=== PATIENT | female | born 1945 | race Caucasian/White ===

== ENCOUNTER → 2019-04-10 07:38 | Outpatient (CLI) | payer MEDICARE, SELFPAY ==
[2018-10-29 11:31] VITALS: BMI 32.5
--- NOTE | 2019-04-10 07:48 | VDLE_ITS ---
Reason For Study: Varicose Veins RIGHT LEFT CFV is compressible, spontaneous, phasic, CFV is compressible, spontaneous, phasic, competent and demonstrates normal competent, and demonstrates normal augmentation. augmentation. FV is compressible, spontaneous, phasic, FV is compressible, spontaneous, phasic, competent and demonstrates normal competent and demonstrates normal augmentation. augmentation. POP V is compressible, spontaneous, phasic, POP V is compressible, spontaneous, phasic, competent and demonstrates normal competent and demonstrates normal augmentation. augmentation. T/P Trunk is compressible. T/P Trunk is compressible. PTV is compressible. PTV is compressible. RT PerV is compressible. LT PerV is compressible. SFJ is competent. SFJ is competent. GSV above knee is competent. GSV is INCOMPETENT throughout for greater GSV below knee is INCOMPETENT for greater than 0.5 seconds and measures 0.29 x0.28 cm. than 0.5 seconds and measures 0.32 x 0.32 cm. GSV mid calf and below is very small. SSV is compressible but to small to evaluate. ASV from groin is INCOMPETENT for greater Procedure than 0.5 seconds and measures 0.30 x 0.34 cm. Exam performed in department. SSV is compressible but to small to evaluate. Interpretation Summary 1. Bilateral no DVT. 2. No deep reflux. 3. Right BK GSV reflux. 3. Left GSV 3mm and reflux throughout and ASV 3.4mm and reflux. Ordering Physician: Jerad Monte Referring Physician: MD Jerad Monte Performed By: Christina Chang RVT
== END ==
PROVIDERS: Family Provider Nurse Practitioner Primary Care; PCP Nurse Practitioner Primary Care; Referring Provider Surgery Vascular Surgery; Visit Provider Surgery Vascular Surgery
DX: I83.893 Varicose veins of bilateral lower extremities with other complications (principal); M79.89 Other specified soft tissue disorders; M79.609 Pain in unspecified limb
CPT/HCPCS: 93970

== ENCOUNTER → 2021-09-14 11:03 | Outpatient (CLI) | payer MEDICARE, SELFPAY ==
[2021-09-14 11:15] LABS: Absolute Neutrophil Count 6.2 X10^3/uL (2.0-7.7); Basophil# 0.02 X10^3/uL; Basophil% 0.2 % (0-1); Eosinophil# 0.01 X10^3/uL; Eosinophils% 0.1 % (0-5); Hematocrit 36.6 % (37-47); Hemoglobin 11.7 g/dL (12.0-15.0); Lymphocyte % 15.6 % (19-41); Mean Corpuscular Hgb 28.6 pg (27.0-32.0); Mean Corpuscular Volume 89.5 fL (81-99); Mean Platelet Vol. 11.9 fl (6.2-12.0); Monocyte# 0.77 X10^3/uL; Monocyte% 9.2 % (0-10); NRBC Flagged by Analyzer 0 % (0-5); Neutrophil % 74.4 % (47-70); Platelet Count 153 K/mm3 (150-450); RBC Distribution Width CV 14.4 % (11.6-14.6); RBC Distribution Width SD 46.8 fl (35.1-43.9); Red Blood Count 4.09 M/mm3 (4.2-5.4); White Blood Count 8.3 K/mm3 (4.4-11.0)
[2021-09-14 11:30] LABS: ALB/GLOB Ratio 0.9 RATIO (0.9-2.4); AST(SGOT) 20 U/L (15-37); Alanine Aminotransfer ALT/SGPT 24 U/L (13-56); Albumin, Serum 3.5 g/dL (3.2-5.0); Alkaline Phosphatase 103 U/L (45-117); Anion Gap 6 (5-15); BUN 15 mg/dL (7-18); BUN/Creat Ratio 18.8 RATIO (10-20); Calcium,Total 9.4 mg/dL (8.5-10.1); Chloride 102 mmol/L (98-107); EST Glomerular Filtration Rate 75 mL/min (>60); Est Glom Filt Rate - Afr Amer 90 mL/min (>60); Globulin 4.1 g/dL (2.2-4.2); Glucose 117 mg/dL (74-106); Potassium 3.6 mmol/L (3.5-5.1); Protein, Total 7.6 g/dL (6.4-8.2); Sodium Level 138 mmol/L (136-145)
[2021-09-14 19:07] LABS: Xtra Tube EP Lab EXTRA TUBE
== END ==
PROVIDERS: PCP Nurse Practitioner Primary Care; Visit Provider Internal Medicine Hematology & Oncology
DX: C50.912 Malignant neoplasm of unspecified site of left female breast (principal); Z17.0 Estrogen receptor positive status [ER+]
CPT/HCPCS: 36415; 80053; 85025

== ENCOUNTER → 2021-09-17 13:32 | Outpatient (CLI) | payer MEDICARE, SELFPAY ==
--- NOTE | 2021-09-17 13:36 | CT_ITS ---
HISTORY: Left breast and keri disease resected, evaluate for any regional disease. TECHNIQUE: Helically acquired images were obtained of the chest following IV contrast. A radiation dose optimization technique was used for this scan. 100 mL Isovue 300 IV/Readicat p.o. # of images incl. paperwork: [id number]. COMPARISON: None. FINDINGS: CENTRAL AIRWAYS: Patent. LUNGS: Clear. PLEURA: No pneumothorax or pleural effusion. HEART AND PERICARDIUM: Heart size within normal limits with pacemaker in place. No significant pericardial effusion. VESSELS: Aorta within normal limits in size and contour. No large central pulmonary embolism although study not performed with pulmonary embolism protocol. MEDIASTINUM AND ADALID: No enlarged lymph nodes. SOFT TISSUES: Left breast implant with irregular scarring extending to the skin surface . Small left axillary lymph nodes without pathologic enlargement. BONES: Degenerative changes of the left shoulder with periarticular ossifications an old fracture of the coronoid process. No suspicious osteoblastic or osteolytic lesion. Diffuse idiopathic skeletal hyperostosis. UPPER ABDOMEN: Refer to CT abdomen regarding liver lesions. CT/Chest WITH Contrast IMPRESSION: Postoperative changes of the left breast without evidence for metastatic disease in the chest. Individualized dose optimization techniques were used for this CT. at 1126 Reported and signed by: Jennifer Lee MD Electronically Signed: Jennifer Lee MD at 11:25 EST Tel , Service support ,
--- NOTE | 2021-09-17 13:36 | CT_ITS ---
STUDY: CT ABDOMEN AND PELVIS WITH AND WITHOUT CONTRAST REASON FOR EXAM: Female, 76 years old. staging for recurrent breast cancer RADIATION DOSAGE (If Supplied By Facility): CTDIvol = ( 19.34 ) mGy, DLP = ( 2552.65 ) mGycm TECHNIQUE: Transaxial images were obtained from the dome of the diaphragm to the symphysis pubis with oral contrast. Oral and amp; IV Readi-CAT and amp; 100mL Isovue-300 was administered. Sagittal and coronal images were reconstructed. Individualized dose optimization techniques were used for this CT. COMPARISON: None. FINDINGS: The visualized lung bases are unremarkable. The visualized portions of the heart are within normal limits. Nonenhancing liver cysts in the left lobe of liver measuring 2.5 cm as well as 1.7 cm. Otherwise, unremarkable liver. Normal gallbladder and extrahepatic biliary system. Normal spleen. There is diffuse atrophy of the pancreas. Normal bilateral adrenal glands. Normal right kidney. Normal left kidney. Normal visualized stomach. Normal small intestine. There are multiple colonic diverticula consistent with diverticulosis. The appendix is visualized and appears normal. There is diffuse atherosclerotic calcification of the abdominal aorta, without a demonstrated aneurysm. There is an IVC filter in place. Normal retroperitoneum. Normal urinary bladder. Normal visualized uterus. Normal abdominal wall. Right hip arthroplasty. Otherwise, degenerative changes of the lumbar spine without metastatic lesions CT/CT Abd/Pelvis W/WO Contrast IMPRESSION: No evidence of metastatic disease in the abdomen or pelvis. Several nonenhancing liver cysts in the left lobe of the liver. IVC filter in place. No concerning lymphadenopathy. Electronically Signed: Bull Muller DO at 0:35 EST Tel , Service support ,
== END ==
PROVIDERS: PCP Nurse Practitioner Primary Care; Referring Provider Student in an Organized Health Care Education/Training Program; Visit Provider Student in an Organized Health Care Education/Training Program
DX: C50.912 Malignant neoplasm of unspecified site of left female breast (principal)
CPT/HCPCS: 71260; 74178; Q9967; A4216

== ENCOUNTER → 2021-09-20 07:56 | Outpatient (CLI) | payer MEDICARE, SELFPAY ==
--- NOTE | 2021-09-20 07:58 | NM_ITS ---
CLINICAL: 76-year-old female with reported history of carcinoma of the breast. WHOLE BODY 99m Tc MDP RADIONUCLIDE BONE SCINTIGRAPHY COMPARISON: CT of the chest, abdomen and pelvis reports 09/17/2021 FINDINGS: Following the intravenous administration of 25.3 mCi of 99m Tc MDP, whole body bone images reveal: 1. Focal increased radiopharmaceutical concentration is defined in the left coracoid process which appears to correlate with trauma fracture defined on CT of the chest dated 09/17/2021. 2. Enhanced tracer uptake is observed in the glenohumeral compartment of the right shoulder, acromioclavicular and sternoclavicular compartments of both shoulders, right knee, patellofemoral compartment of the left knee, the fifth, ninth and 11th thoracic vertebra posteriorly on the right, the left hip, fifth lumbar vertebra posteriorly on the left, right posterior sacrum. 3. The remaining skeletal structures are scintigraphically unremarkable with normal-appearing renal images and urinary bladder activity identified. Prominent tracer concentration is noted in the presumably asymptomatic intertrochanteric aspect of the visualized right hip arthroplasty, medial-lateral femoral components of the left knee prosthesis. There is evidence of hyperostosis frontalis. NM/Bone Scan Whole Body IMPRESSION: 1. The increase in tracer concentration observed in the left coracoid process is most consistent with trauma-fracture. Dedicated plain film radiography may be of benefit for further evaluation. 2. Facilitated uptake identified in the presumed nonpainful, asymptomatic left knee prosthesis to include the the medial-lateral tibial components, intertrochanteric and distal femoral components of the right hip prosthesis is most consistent with normal postsurgical change. Electronically Signed: Dioni Valera DO at 23:05 EST Tel , Service support ,
== END ==
PROVIDERS: PCP Nurse Practitioner Primary Care; Referring Provider Student in an Organized Health Care Education/Training Program; Visit Provider Student in an Organized Health Care Education/Training Program
DX: C50.912 Malignant neoplasm of unspecified site of left female breast (principal)
CPT/HCPCS: 78306; A9503

== ENCOUNTER 2021-12-31 13:12 | Outpatient (CLI) | payer MEDICARE, SELFPAY ==
--- NOTE | 2021-12-31 13:15 | MRI_ITS ---
EXAM: MR RIGHT LOWER EXTREMITY WITHOUT INTRAVENOUS CONTRAST, HIP CLINICAL INDICATION: RIGHT hip pain, unable to ambulate properly Prosthesis MARS protocol TECHNIQUE: Multiplanar and multisequence MR images of the right hip without intravenous contrast. This report was created using [employer] report [employer] technology. COMPARISON: None. FINDINGS: TENDONS: FLEXORS: Unremarkable. Intact. EXTENSORS/HAMSTRING: Unremarkable. Intact. ABDUCTORS: Unremarkable. Intact. ADDUCTORS: Unremarkable. Intact. ROTATORS: Unremarkable. Intact. MUSCLES: Unremarkable. Normal bulk and signal. FLUID: Unremarkable. No joint effusion. No trochanteric bursitis. LABRUM: Unremarkable. No evidence of a tear on this non-arthrogram exam. CARTILAGE: Unremarkable. Articular cartilage intact. BONES/JOINTS: Total right hip arthroplasty. Degenerative findings in the lumbar spine. No femoral neck fracture. No avascular necrosis of the femoral head. No sacral insufficiency fracture. No suspicious bone marrow signal alteration. OTHER SOFT TISSUES: Unremarkable. MRI/Lower Ext Joint Only (Routine) IMPRESSION: No acute findings in the right hip. Electronically Signed: James Noriega MD at 20:29 EDT Reading Location ID and State: [facility] / [place] , Service support ,
[2021-12-31 13:44] VITALS: BP 129/74; PULSE 80; RESP 16; O2SAT 97
[2021-12-31 13:52] VITALS: BP 120/68; PULSE 79; RESP 16; O2SAT 97
[2021-12-31 14:04] VITALS: BP 117/66; PULSE 79; RESP 16; O2SAT 98
[2021-12-31 14:14] VITALS: BP 117/64; PULSE 80; RESP 16; O2SAT 97
[2021-12-31 14:24] VITALS: BP 111/61; PULSE 80; RESP 16; O2SAT 96
[2021-12-31 14:33] VITALS: BP 112/68; PULSE 78; RESP 16; O2SAT 95
== END 2021-12-31 23:59 | disposition home or self-care (01) ==
PROVIDERS: PCP Nurse Practitioner Primary Care; Visit Provider Specialist
DX: M25.551 Pain in right hip (principal); G89.29 Other chronic pain
CPT/HCPCS: 73721

== ENCOUNTER → 2022-03-08 | Outpatient (CLI) | payer MEDICARE, SELFPAY ==
--- NOTE | 2022-03-08 13:00 | MRI_ITS ---
STUDY: MR Spine Lumbar W/O Contrast 03/08/2022 2:20 PM REASON FOR EXAM: Female, 76 years old. Back pain SPINAL STENOSIS hip pain TECHNIQUE: MR Spine Lumbar W/O Contrast Standardized fat and water weighted pulse sequences were obtained. COMPARISON: None FINDINGS: T12-L1: Normal endplates. Normal disc height, hydration and morphology. Normal bilateral facet joints. Normal central canal and bilateral lateral recesses. Normal bilateral intervertebral neural foramina. Normal lumbar lordosis. There is no substantial scoliosis. Normal conus medullaris that terminates at the L1. L1-2: Loss of intervertebral disc height. There is endplate spondylosis of the vertebral body. Normal central canal and intervertebral neuroforamina. There is bilateral facet arthropathy. There is bilateral ligamentum flavum thickening. L2-3: Loss of intervertebral disc height. There is endplate spondylosis of the vertebral body. Normal central canal and intervertebral neuroforamina. There is bilateral facet arthropathy. There are laminectomy changes in the spine. This is consistent for previous surgery. L3-4: Loss of intervertebral disc height. There is endplate spondylosis of the vertebral body. There is bilateral facet arthropathy. Right neural foraminal stenosis. Compression of exiting nerve roots. There are laminectomy changes in the spine. This is consistent for previous surgery. Disc protrusion. Narrowing the lateral recess. Likely compression of the descending L4 nerve roots. L4-5: Loss of intervertebral disc height. There is endplate spondylosis of the vertebral body. There is bilateral facet arthropathy. Bilateral neural foraminal stenosis. Compression of exiting nerve roots. There are laminectomy changes in the spine. This is consistent for previous surgery. Disc protrusion. Narrowing the lateral recess. Likely compression of the descending L5 nerve roots. L5-S1: Loss of intervertebral disc height. There is endplate spondylosis of the vertebral body. There is bilateral facet arthropathy. Bilateral neural foraminal stenosis. Compression of exiting nerve roots. There are laminectomy changes in the spine. This is consistent for previous surgery. Posterior disc bulge. Normal visualized sacral ala. MRI/Spine Lumbar (Routine) IMPRESSION: Multilevel degenerative changes, as described above. L3-4: Right neural foraminal stenosis. Compression of exiting nerve roots. There are laminectomy changes in the spine. This is consistent for previous surgery. Disc protrusion. Narrowing the lateral recess. Likely compression of the descending L4 nerve roots. L4-5: Bilateral neural foraminal stenosis. Compression of exiting nerve roots. There are laminectomy changes in the spine. This is consistent for previous surgery. Disc protrusion. Narrowing the lateral recess. Likely compression of the descending L5 nerve roots. L5-S1: Bilateral neural foraminal stenosis. Compression of exiting nerve roots. There are laminectomy changes in the spine. This is consistent for previous surgery. Posterior disc bulge. Electronically Signed: James Noriega MD at 14:25 EDT Reading Location ID and State: [facility] / [place] , Service support ,
[2022-03-08 13:30] VITALS: BP 105/46; PULSE 100; RESP 16; O2SAT 96
== END | disposition home or self-care (01) ==
PROVIDERS: PCP Nurse Practitioner Primary Care; Visit Provider Orthopaedic Surgery
DX: M48.061 Spinal stenosis, lumbar region without neurogenic claudication (principal); M47.816 Spondylosis without myelopathy or radiculopathy, lumbar region; M96.1 Postlaminectomy syndrome, not elsewhere classified
CPT/HCPCS: 72148

== ENCOUNTER 2022-07-04 10:08 | Day surgery (SDC) | payer MEDICARE, SELFPAY ==
[2022-07-04 10:34] VITALS: BP 120/57; PULSE 59; RESP 16; TEMP 36.3; O2SAT 100; BMI 40.2
[2022-07-04] MEDS: Lactated Ringers 1,000 ML 15 ML IV (10:47)
--- NOTE | 2022-07-04 11:50 | RAD_ITS ---
PROCEDURE: CAUDAL EPIDURAL STEROID INJ INDICATION: CAUDAL EPIDURAL STEROID INJ EXAMINATION/TECHNIQUE: X-RAY - IR Fluoro Guide Injection Spine COMPARISON: 03/08/2022. FLUOROSCOPY TIME: 6.1 seconds FLUOROSCOPY DOSE: 12.17 mGy FINDINGS: A single spot fluoroscopic image was obtained intraoperatively. Lateral view of the sacrum and coccyx was obtained demonstrating demonstrate the needle placement and contrast injection. No radiologist was present for the procedure, please refer to operative report for details. RAD/Fluoro Guided Needle Placement IMPRESSION: Please refer to operative report for details. Electronically Signed: Piotr Flaherty MD at 13:42 EDT ,
[2022-07-04] MEDS: Lidocaine 1% (30 ml sdv) 30 ML Vial INFILT (12:04)
[2022-07-04] MEDS: MethylPREDNISolone Acetate 80 MG/ML Vial (12:05)
[2022-07-04] MEDS: 0.9% Normal Saline (Pres. free 10 ML Vial (12:05)
[2022-07-04 12:09] VITALS: BP 120/57; BP 131/69; PULSE 66; RESP 16; TEMP 36.7; O2SAT 100
[2022-07-04 12:15] VITALS: BP 114/69; BP 120/57; PULSE 63; RESP 16; O2SAT 99
[2022-07-04 12:20] VITALS: BP 120/57; BP 136/58; PULSE 60; RESP 16; O2SAT 100
[2022-07-04 12:25] VITALS: BP 120/57; BP 137/68; PULSE 60; RESP 16; TEMP 36.7; O2SAT 99
[2022-07-04 12:43] VITALS: BP 120/57
--- NOTE | 2022-07-04 17:12 | OP.PCM_ITS ---
Report of Operation Date of Procedure: 07/04/22 Pre-Operative Diagnosis: Lumbosacral radiculopathy, lumbosacral degenerative di sc disease, lumbosacral spinal stenosis Post-Operative Diagnosis: Lumbosacral radiculopathy, lumbosacral degenerative disc disease, lumbosacral spinal stenosis Surgery/Procedure Performed:: Caudal epidural steroid injection under fluoroscopic guidance Type of Anesthesia: MAC Estimated Blood Loss (mL): Minimal Description of Procedure: DESCRIPTION OF PROCEDURE: History and physical of today was reviewed. Risks and benefits of the procedure were explained. The patient understood and agreed to proceed. Informed consent was obtained. IV inserted per routine protocol. The patient was taken to the operating room and placed in the prone position with a pillow positioned underneath the abdomen. The lower back and tailbone area was prepped and draped in a sterile fashion using iodine x3. Under fluoroscopy guidance on a lateral view, the caudal space was identified. The skin and subcutaneous tissue was anesthetized with approximately 3 mL of 1% lidocaine using a 25-gauge regular needle. Under direct visualization with fluoroscopy, using a 22-gauge 3-1/2-inch spinal needle, the needle was advanced via the skin through the sacral hiatus. The tip of the needle was passed through the sacrococcygeal ligament and advanced to approximately S4 area. After negative aspiration of blood or CSF, a total of 3 mL of contrast was injected to confirm correct placement of the needle as well as cephalad spread. The spread was followed to approximately L5 area. After confirmation on AP as well as lateral view and repeated negative aspiration, a total of 15 mL of preservative-free 0.125% Marcaine with 80 mg of Depo-Medrol was injected easily. The needle was then removed intact. The patient experienced no sign or symptoms of intrathecal or intravascular injection. The patient experienced no paresthesia. The procedure was completed without any apparent difficulty or any complications. The patient appeared to tolerate it well. ASSESSMENT AND PLAN: This is a 76-year-old female with lumbosacral radiculopathy, lumbosacral degenerative disc disease, lumbosacral spinal stenosis status post caudal epidural steroid injection, patient will continue her current medications, patient will follow in approximately 2 weeks for reevaluation. Complications None
== END 2022-07-04 12:47 | disposition home or self-care (01) ==
LOC: SDC 10:12 → AC 10:13
PROVIDERS: PCP Nurse Practitioner Primary Care; Referring Provider Anesthesiology Pain Medicine; Visit Provider Anesthesiology Pain Medicine
PROC: 3E0S3BZ Introduction of Anesthetic Agent into Epidural Space, Percutaneous Approach (ICD-10-PCS; CPT 62282; principal; 2022-07-04 11:45)
DX: M51.17 Intervertebral disc disorders with radiculopathy, lumbosacral region (principal); M48.07 Spinal stenosis, lumbosacral region; I25.10 Atherosclerotic heart disease of native coronary artery without angina pectoris; I10 Essential (primary) hypertension; E78.00 Pure hypercholesterolemia, unspecified; G47.30 Sleep apnea, unspecified; Z95.0 Presence of cardiac pacemaker; Z79.899 Other long term (current) drug therapy
CPT/HCPCS: 62323; 01992; 64483; 77002; J7120; J2405; J3490

== ENCOUNTER → 2023-07-20 | Outpatient (CLI) | payer MEDICARE, SELFPAY ==
--- NOTE | 2023-07-20 12:11 | BI_ITS ---
MAMMOGRAPHY - BILATERAL SCREENING REASON FOR EXAM: Female, 77 years old. Routine annual screening examination. PERTINENT HISTORY: Personal history of breast cancer. Left lumpectomy with radiation treatment. TECHNIQUE: Digital bilateral breast ritesh (3D mammographic acquisition) in the CC and MLO projections. 2-D mediolateral oblique (MLO) and craniocaudad (CC) views of both breasts were obtained. CAD: Full Field Digital Mammography with Computer Added Detection was performed. COMPARISON: Comparison is made with prior outside images dated May 21, 2021. FINDINGS: Breast Composition: There are scattered areas of fibroglandular density. There are no dominant masses or suspicious calcifications. There is deformity of the left breast due to prior resection. A left-sided implant is seen with calcification along its anterior aspect. This is unchanged. The right breast is unremarkable. A pacemaker battery pack is seen in the right axilla. No other significant abnormalities are identified. There has been no significant change since the prior study. BI/SCRN MAMM (CAD)W/RITESH BILAT IMPRESSION: Stable bilateral screening mammogram. Yearly follow-up mammogram recommended. (A) ASSESSMENT CATEGORY: BIRADS Category 2: Benign. A letter regarding these results will be sent to the patient by the facility within 30 days. Approximately 10% of breast cancers are not detected by mammography. A normal mammogram should not delay biopsy of a clinically suspicious abnormality. [id number] Electronically Signed: Darryl Moralez MD at 13:56 EDT ,
--- NOTE | 2023-07-20 12:14 | BD_ITS ---
STUDY: DUAL ENERGY X-RAY ABSORPTIOMETRY / DXA REASON FOR EXAM: Female, 77 years old. SCREENING TECHNIQUE: Bone Mineral Density (BMD) measurements of both forearms were obtained. COMPARISON: None. FINDINGS: Right Forearm: g/cm2 (0.516) / T-score (-1.2) / Z-score (1.4) Left Forearm: g/cm2 (0.541) / T-score (-0.7) / Z-score (1.8) BD/Dexa Bone Density/Append Skel IMPRESSION: The patient is considered osteopenic as outlined below according to World [employer] Organization (WHO) criteria with a low fracture risk. Reference Information: The T-score is the number of standard deviations above or below the standard which is normal for young adults at their peak bone mineral density. The World Health Organization (WHO) interprets the T-scores as follows: Above -1 Normal bone density Between -1 and -2.5 Osteopenia Equal to / or below -2.5 Osteoporosis As a practical clinical guideline, osteopenia may be graded as follows: Mild -1 through -1.5 Moderate -1.6 through -2.0 Severe -2.1 through -2.4 The Z-score is the number of standard deviations above or below age-matched controls. A Z-score of less than -1.5 would be considered abnormal. References: 1. NIH Osteoporosis and Related Bone Diseases www osteo.org 2. International Society for Clinical Densitometry www iscd.org 3. National Osteoporosis Foundation www nof.org Electronically Signed: Darryl Moralez MD at 14:12 EDT ,
== END | disposition home or self-care (01) ==
LOC: OPBD 12:10
PROVIDERS: PCP Nurse Practitioner Primary Care; Referring Provider Internal Medicine Hematology & Oncology; Visit Provider Internal Medicine Hematology & Oncology
DX: Z13.820 Encounter for screening for osteoporosis (principal); Z78.0 Asymptomatic menopausal state; Z12.31 Encounter for screening mammogram for malignant neoplasm of breast; Z85.3 Personal history of malignant neoplasm of breast
CPT/HCPCS: 77063; 77067; 77081

== ENCOUNTER 2023-08-29 05:56 | Day surgery (SDC) | payer MEDICARE, SELFPAY ==
[2023-08-29] VITALS (7 sets, daily range): BP systolic 105–124; BP diastolic 57–76; PULSE 59–65; RESP 16–18; TEMP 36.2–36.7; O2SAT 95–100; BMI 34.6
[2023-08-29 06:20] LABS: INR Fingerstick 1.5; Prothrombin Time Fingerstick 17.1 SEC (11.7-14.9)
[2023-08-29] MEDS: Lactated Ringers 1,000 ML 15 ML IV (06:45)
--- NOTE | 2023-08-29 06:54 | OP.PCM_ITS ---
Report of Operation Date of Procedure: 08/29/23 Description of Surgical Findings:: REPORT OF OPERATION PREOPERATIVE DIAGNOSES: 1. Lumbar stenosis, spondylosis. 2. Chronic back pain POSTOPERATIVE DIAGNOSES: 1. Lumbar stenosis, spondylosis. 2. Chronic back pain PROCEDURE PERFORMED: 1. Removal of percutaneous spinal cord stimulator trial leads 2. Subcutaneous placement of dorsal column stimulator generator. 3. One hour of complex programming postoperatively. SURGEON: [ ] FURNITURE INSPECTOR: [ ] ANESTHESIA: IV FLUIDS: [ ] mL of crystalloid. ESTIMATED BLOOD LOSS: [ ] mL. URINE OUTPUT: [ ]ml. STATEMENT OF MEDICAL NECESSITY: This patient is a a 78-year-old female with intractable back and leg pain. The patient has had a successful spinal cord stimulator trial. She is here for removal of percutaneous trial leads and implantation of spinal cord stimulator generator. The patient has opted for treatment of operative intervention, understanding the risks to include, damage to nerves, arteries and veins, possibility of continued pain, need for additional surgery, pulmonary embolism, heart attack, stroke, or . DESCRIPTION OF PROCEDURE: The patient was identified in the preoperative holding area. There, the patient received preoperative IV antibotics and was then transferred to the operating suite. Once in the operating suite, after the appropriate amount of anesthesia was established, the patient was transferred to the operating table in the prone position. All bony prominences were padded accordingly. The thoracolumbar spine was prepped and draped in standard surgical fashion. The previous incision in the right iliolumbar region for the battery pocket was reopened. Wires from the stimulator were then connected to a new generator battery. The percutaneous trial wires were disconnected and removed. The incision was then irrigated and closed with #1 vicryl for the fascia, 2-0 vicryl for subcutaneous, and 2-0 nylon for skin. A sterile dressing was applied with 4 x 4, ABD, and tape. Sponge, instrument, and needle counts were correct at the end of the case. The patient was extubated, taken to PACU without incident. Then one hour was spent with complex programming when the patient recovered Surgeon: Kwadwo Jensen Type of Anesthesia: Local and MAC Estimated Blood Loss (mL): 1 cc Fluids Replaced: 500 cc Grafts/Implants Used: [employer] Complications None Admit VTE Documentation VTE Present on Admission: No
--- NOTE | 2023-08-29 06:54 | PCM.PN.ORT ---
Subjective Subjective Seen and examined postoperatively. Resting comfortably. Pain controlled. No complaints Objective Data Lab / Micro Data Labs: Laboratory Results - last 24 hr 08/29/23 06:19: POC PT 17.1 H, INR 1.5 Physical Exam Const alert, oriented x3 and no apparent distress General Appearance: cooperative, comfortable and well kempt HEENT normocephalic and head/scalp atraumatic Eyes EOMs intact bilaterally and conjunctivae normal Neck full ROM General: normal visual inspection Chest inspection of chest normal and palpation of chest normal Resp normal respiratory effort and normal air movement Effort and Inspection: able to speak in complete sentences Cardio regular rate, regular rhythm and peripheral pulses 2+ throughout GI soft to palpation, non-tender and non-distended Back/Spine Back/Spine Narrative: Dressings clean dry and intact Cervical Spine: cervical ROM normal Thoracic Spine / Upper Back: normal to inspection Lumbar Spine / Lower Back: normal to inspection Extremity normal to inspection, full ROM, normal capillary refill, no clubbing, cyanosis or edema and no calf tenderness Skin no rashes or lesions noted General Skin Exam: no breakdown Neuro oriented x3, CN's II-XII intact bilaterally, moves all extremities, no focal motor deficits, no sensory deficits noted and deep tendon reflexes 2+ bilaterally Motor Exam: strength 5/5 throughout and muscle tone normal throughout Assessment & Plan Assessment/Plan (1) Lumbar spondylosis: PLAN: Okay to discharge See discharge instructions Follow-up with Dr. Jensen as scheduled
[2023-08-29] MEDS: Cefazolin 2 GM in 0.9% Normal Saline (100mL Bag) 100 ML IV (07:35)
--- NOTE | 2023-08-29 07:38 | RAD_ITS ---
INDICATION: IMPLANTATION OF SPINAL CORD STIM GENERATOR AND REMOVAL OF PERCUT EXAMINATION/TECHNIQUE: X-RAY - XR Spine Lumbar 2 Views COMPARISON: MRI lumbar spine dated March 08, 2022 FINDINGS: Two fluoroscopy images were obtained that demonstrate a stimulator device in place with its leads terminating within the expected region of the lower thoracic spine. There is a stimulator device projecting over the left sacroiliac joint. Please refer to the procedural note for further discussion. Electronically Signed: Kenia Underwood MD at 8:21 EST , RAD/Lumbar Spine 2 or 3 Views IMPRESSION: undefined
[2023-08-29] MEDS: Bupivacaine 0.25% 30 ML Vial (07:58)
== END 2023-08-29 09:07 | disposition home or self-care (01) ==
LOC: SDC 05:58 → AC 06:01
PROVIDERS: PCP Nurse Practitioner Primary Care; Referring Provider Orthopaedic Surgery; Visit Provider Orthopaedic Surgery
PROC: (CPT 63655; principal; 2023-08-29 07:00)
DX: M47.816 Spondylosis without myelopathy or radiculopathy, lumbar region (principal); M46.96 Unspecified inflammatory spondylopathy, lumbar region; M48.061 Spinal stenosis, lumbar region without neurogenic claudication; G89.29 Other chronic pain; M96.1 Postlaminectomy syndrome, not elsewhere classified; M51.36 Other intervertebral disc degeneration, lumbar region; M41.86 Other forms of scoliosis, lumbar region; G47.30 Sleep apnea, unspecified; E66.9 Obesity, unspecified; I10 Essential (primary) hypertension; M99.03 Segmental and somatic dysfunction of lumbar region; M99.05 Segmental and somatic dysfunction of pelvic region; N32.9 Bladder disorder, unspecified; E78.00 Pure hypercholesterolemia, unspecified; Z79.899 Other long term (current) drug therapy; Z79.01 Long term (current) use of anticoagulants; Z68.34 Body mass index [BMI] 34.0-34.9, adult; Z86.718 Personal history of other venous thrombosis and embolism
CPT/HCPCS: 63685; 00300; 36416; 72100; 76000; 85610; C1820; J7120; J2405

== ENCOUNTER → 2024-07-22 | Outpatient (CLI) | payer MEDICARE, SELFPAY ==
--- NOTE | 2024-07-22 09:38 | BI_ITS ---
MAMMOGRAPHY - BILATERAL SCREENING REASON FOR EXAM: Female, 78 years old. Routine annual screening examination. PERTINENT HISTORY: Personal history of breast cancer. Prior left mastectomy with radiation and chemotherapy. TECHNIQUE: Digital bilateral breast ritesh (3D mammographic acquisition) in the CC and MLO projections. 2-D mediolateral oblique (MLO) and craniocaudad (CC) views of both breasts were obtained. CAD: Full Field Digital Mammography with Computer Added Detection was performed. COMPARISON: Comparison is made with prior study dated July 20, 2023. FINDINGS: Breast Composition: There are scattered areas of fibroglandular density. Stable appearance of the left breast implants with dense calcifications along its anterior aspect. Stable deformity of the left breast. A pacemaker battery pack is once again seen in the axillary region of the right breast. There are no dominant masses or suspicious calcifications. No other significant abnormalities are identified. There has been no significant change since the prior study. BI/SCRN MAMM (CAD)W/RITESH BILAT IMPRESSION: Stable bilateral screening mammogram. Yearly follow-up mammogram recommended. (A) ASSESSMENT CATEGORY: BIRADS Category 2: Benign. A letter regarding these results will be sent to the patient by the facility within 30 days. Approximately 10% of breast cancers are not detected by mammography. A normal mammogram should not delay biopsy of a clinically suspicious abnormality. [id number] Electronically Signed: Darryl Moralez MD at 11:04 EDT ,
== END | disposition home or self-care (01) ==
LOC: OPBI 09:38
PROVIDERS: PCP Nurse Practitioner Primary Care; Referring Provider Nurse Practitioner Family; Visit Provider Nurse Practitioner Family
DX: Z12.31 Encounter for screening mammogram for malignant neoplasm of breast (principal); Z90.12 Acquired absence of left breast and nipple; Z85.3 Personal history of malignant neoplasm of breast
CPT/HCPCS: 77063; 77067

== ENCOUNTER → 2025-07-24 | Outpatient (CLI) | payer MEDICARE, SELFPAY ==
--- NOTE | 2025-07-24 09:45 | BD_ITS ---
PROCEDURE: DEXA BONE DENSITY/APPEND SKEL 07/24/2025 REASON FOR EXAM: SCREENING FOR OSTEOPOROSIS F, age 79 y/o . TECHNIQUE: Procedure Code: [id number] Modality: DX Procedure: DEXA BONE DENSITY/APPEND SKEL COMPARISON: 07/20/2023 FINDINGS: BMD and T-SCORES Left 1/3 radius: 0.618 g/cm2, T-score -1.3 Change from prior: -2.4%. Right 1/3 radius: 0.614 g/cm2, T-score -1.3 Change from prior: -0.8%. The World Health Organization has defined the following categories based on bone density: Normal bone density: T-score equal to or greater than -1.0 Osteopenia: T-score between -1.0 and -2.5 Osteoporosis: T-score equal to or less than -2.5 FRAX (or Comparable) Fracture Risk Assessment: Not reported. (Note: FRAX is not to be reported in setting of normal range bone density, osteoporosis on DEXA, known history of osteoporosis, prior osteoporotic hip or vertebral fracture, or for any patient undergoing pharmacological treatment for bone loss.) The National Osteoporosis Foundation (NOF) recommends pharmacological treatment for patients with a FRAX 10-year risk of 3% or higher for a hip fracture, or 20% or higher for a major osteoporotic fracture, to prevent osteoporosis and reduce fracture risk. BD/Dexa Bone Density/Append Skel IMPRESSION: There is osteopenia of both radii. Recommend follow-up as clinically warranted. Reading Location: [place] [id number]
--- NOTE | 2025-07-24 09:45 | BI_ITS ---
EXAM: SCRN MAMM (CAD)W/RITESH BILAT DATE: 07/24/2025 CLINICAL HISTORY: F, Age 79 y/o , SCREENING FOR BREAST CA TECHNIQUE: Procedure Code: [id number] Modality: MG Procedure: SCRN MAMM (CAD)W/RITESH BILAT COMPARISON: Prior exam(s) dated 07/22/2024, 07/20/2023. FINDINGS: TISSUE DENSITY: There are scattered areas of fibroglandular density. Bilateral Breast Mammographic Findings: There are postsurgical changes in the left breast, as well as a saline implant in the left breast. No significant masses, calcifications or other abnormalities are identified. BI/SCRN MAMM (CAD)W/RITESH BILAT IMPRESSION: There is no mammographic evidence of malignancy. OVERALL FINAL ASSESSMENT BI-RADS 2: BENIGN RECOMMENDATION: Routine annual follow-up in 1 Year Additional Recommendation none A letter with findings and recommendations will be mailed to the patient. Reading Location: [id number]
== END | disposition home or self-care (01) ==
LOC: OPBD 09:44
PROVIDERS: PCP Nurse Practitioner Primary Care; Referring Provider Internal Medicine Hematology & Oncology; Visit Provider Internal Medicine Hematology & Oncology
DX: Z13.820 Encounter for screening for osteoporosis (principal); Z78.0 Asymptomatic menopausal state; Z12.31 Encounter for screening mammogram for malignant neoplasm of breast
CPT/HCPCS: 77063; 77067; 77081